=== PATIENT | female | born 1960 | race Caucasian/White ===

== ENCOUNTER → 2016-11-05 | Outpatient (CLI) | payer BC ==
[~2016-11-05] MED LIST: B-12250 MCG PO; CALCIUM + VITAM1 TAB PO; CALCIUM 500 +1 EAC2 PO; CALCIUM 600 + D1 TA1 PO; CYANOCOBALAM1000 MCG PO; KEFLEX500 M1 PO; MEGACE ORA400 MG/10 PO; MULTIPLE VITAM1 EAC1 PO; MULTIVITAMIN1 UDCAP PO; PANTOPRAZOLE SO40 MG PO; VENTOLIN5 MG/ML IH; ZOLOFT PO; ZOLOFT100 MG PO
--- NOTE | ~2016-11-05 | MY11 ---
[facility] A [facility] RADIOLOGY TEXT RESULTS PATIENT: JA HARPER LOCATION: [facility] : 58 UNIT #: [id number] AGE: [address]: West Barrera MD SEX: F ORDER DR: [id number] [facility] [address] [place], [place] [address] [id number] O MR#: [id number] Acc #: [id number] NAME: JA HARPER. : 1960 SEX: F STUDY DATE/TIME: 11/05/2016 16:15 UNIT: [facility] ROOM: STUDY DESCRIPTION: MY Mammogram Screening Dig Archie Attending Physician: West Barrera M.D. Ordering Physician: West Barrera M.D. Primary Care Physician: West Barrera M.D. MEDICAL IMAGING REPORT This report is preliminary unless electronic signature is present EXAM Digital screening mammogram 11/05/2016. [facility] HISTORY 56-year-old woman no risk elevation. Annual screening. COMPARISON: Mammograms date to 04/11/2006 with most recent 02/22/2011 FINDINGS Digital imaging of each breast was completed utilizing screening protocol. Review includes FDA-approved CAD device. Fibroglandular opacities are noted upper outer quadrants bilaterally and stable. I see no interval occurring mass. There are no suspicious microcalcifications and no architectural deformity. IMPRESSION Negative mammogram. Annual screening recommended. Patients over the age of 40 are entered into a reminder system with target due date for the next mammogram. A result letter will also be sent to the patient. BIRADS: 1 - negative Dictated by... Josue Pearson M.D. THIS IS AN ELECTRONICALLY VERIFIED REPORT Josue Pearson M.D. at 11/06/2016 9:32 AM JBB/cmm [facility] A Service of [facility] RADIOLOGY TEXT RESULTS PATIENT: JA HARPER LOCATION: [facility] #: [id number] : 58 UNIT #: [id number] AGE: [address]: West Barrera MD SEX: F ORDER DR: TD: 11/06/2016 09:01 JOB #: [id number] MEDICAL IMAGING REPORT Page 1 of 1 COPY
== END | disposition home or self-care (01) ==
LOC: CWCC 16:08
DX: Z12.31 Encounter for screening mammogram for malignant neoplasm of breast (principal)
CPT/HCPCS: G0202

== ENCOUNTER → 2016-11-29 | Outpatient (CLI) | payer BC ==
--- NOTE | ~2016-11-29 | CT138 ---
[facility] A Service of [facility] RADIOLOGY TEXT RESULTS PATIENT: JA HARPER LOCATION: [facility] : 58 UNIT #: [id number] AGE: [address]: West Barrera MD SEX: F ORDER DR: [id number] [facility] [address] [place], [place] [address] [id number] O MR#: [id number] [facility] #: [id number] NAME: JA HARPER. : 1960 SEX: F STUDY DATE/TIME: 11/29/2016 16:36 UNIT: [facility] ROOM: STUDY DESCRIPTION: CT Lung screening initial Attending Physician: West Barrera M.D. Referring Physician: West Barrera M.D. Ordering Physician: West Barrera M.D. Primary Care Physician: West Barrera M.D. MEDICAL IMAGING REPORT This report is preliminary unless electronic signature is present EXAM CT lung cancer screening, initial study. INDICATION 35 pack-year smoking history, screening. COMPARISON There is a comparison chest x-ray from 07/25/2016. TECHNIQUE Study is done with low dose technique and axial 2 mm images were obtained through the chest. Sagittal and coronal reconstructions were generated. The CTDI volume in mGy is 3.0 and the DLP in mGy-cm is 117. This CT exam was performed with one or more of the following radiation dose reduction techniques: automatic exposure control, adjustment of mA and/or kV according to patient size, and iterative reconstruction. FINDINGS The thyroid gland is normal. The aorta is normal in size. There is no mediastinal or hilar adenopathy. The visualized portions of the upper abdomen are normal. The bones are unremarkable. There are centrilobular emphysematous changes in the upper lobes. There is a calcified granuloma in the right lower lobe. There is a noncalcified 6 x 7 x 4 mm nodule in the right lower lobe on image 84. No left lung nodules are identified. IMPRESSION 1. There is a roughly 7 mm x 6 mm x 4 mm noncalcified nodule in the right lower lobe. This is an ACR Lung-RADS category 3, probably benign. A 6-month low-dose CT scan of the chest is recommended. There is also a calcified granuloma in the right lower lobe. 2. There are emphysematous changes in the upper lobes. [facility]. [facility] [place] A Service of [facility] RADIOLOGY TEXT RESULTS PATIENT: JA HARPER LOCATION: [facility] : 58 UNIT #: [id number] AGE: [address]: West Barrera MD SEX: F ORDER DR: Dictated by... Tristan Callahan M.D. THIS IS AN ELECTRONICALLY VERIFIED REPORT Tristan Callahan M.D. at 12/01/2016 2:34 PM CAESAR/violeta TD: 12/01/2016 13:01 JOB #: [id number] MEDICAL IMAGING REPORT Page 1 of 1 COPY
== END | disposition home or self-care (01) ==
LOC: CCAT 16:12
DX: F17.210 Nicotine dependence, cigarettes, uncomplicated (principal); R91.1 Solitary pulmonary nodule
CPT/HCPCS: G0297

== ENCOUNTER → 2017-01-15 | Outpatient (CLI) | payer BC ==
--- NOTE | ~2017-01-15 | CT2 ---
[facility] A Service of [facility] RADIOLOGY TEXT RESULTS PATIENT: JA HARPER LOCATION: [facility] : 58 UNIT #: [id number] AGE: [address]: Sander Chaparro MD SEX: F ORDER DR: [id number] [facility] [address] [place], [place] [address] [id number] O MR#: [id number] Acc #: [id number] NAME: JA HARPER. : 1960 SEX: F STUDY DATE/TIME: 01/15/2017 11:24 UNIT: [facility] ROOM: STUDY DESCRIPTION: CT Abd and Pelv W Cont Attending Physician: Sander Chaparro M.D. Referring Physician: Sander Chaparro M.D. Ordering Physician: Sander Chaparro M.D. Primary Care Physician: West Barrera M.D. MEDICAL IMAGING REPORT This report is preliminary unless electronic signature is present EXAM CT of the abdomen and pelvis with contrast. INDICATIONS Unintended weight loss since March. TECHNIQUE CT of the abdomen and pelvis was performed following the administration of oral and IV contrast. Coronal and sagittal reformatted images were obtained. This CT exam was performed with one or more of the following radiation dose reduction techniques: automatic exposure control, adjustment of mA and/or kV according to patient size, and iterative reconstruction. COMPARISON No comparisons available. FINDINGS Emphysematous changes of the lung bases. Calcified granuloma of the right lower lobe. The liver is unremarkable. The gallbladder is unremarkable. The spleen is unremarkable. The kidneys are unremarkable. The adrenal glands and pancreas are unremarkable. PELVIS: The colon is unremarkable. There is no free fluid. The remainder of the pelvis is unremarkable. The bone windows demonstrate degenerative changes of the lumbar spine. IMPRESSION No CT findings to explain the patient's symptoms. Dictated by... Isauro Alfaro M.D. [facility] A Service of [facility] RADIOLOGY TEXT RESULTS PATIENT: JA HARPER LOCATION: [facility] : 58 UNIT #: [id number] AGE: [address]: Sander Chaparro MD SEX: F ORDER DR: THIS IS AN ELECTRONICALLY VERIFIED REPORT Isauro Alfaro M.D. at 01/17/2017 4:00 PM OSMAN/melo TD: 01/16/2017 15:41 JOB #: [id number] MEDICAL IMAGING REPORT Page 1 of 1 COPY
== END | disposition home or self-care (01) ==
LOC: CCAT 07:57
DX: R63.4 Abnormal weight loss (principal)
CPT/HCPCS: 74177; Q9967